=== PATIENT | female | born 1975 | race Caucasian/White ===

== ENCOUNTER → 2016-05-25 | Outpatient (CLI) | payer BC | LOC: MOB LAB 08:20 | PROVIDERS: ATTEND Physician Assistant Medical | DX: R30.0 Dysuria (principal); N30.01 Acute cystitis with hematuria | CPT/HCPCS: 87088 ==

== ENCOUNTER 2016-05-29 11:28 | Emergency (ER) | payer BC ==
[2016-05-29] MEDS ORDERED: NORMAL SALINE 10 ML SYRINGE FLUSH IVP PRN (11:35)
[2016-05-29] MEDS ORDERED: ONDANSETRON 4 MG/2 ML VIAL IVP ONE (11:35)
[2016-05-29] MEDS ORDERED: KETOROLAC 15 MG/1 ML VIAL IVP ONE ×2 (11:35→13:00)
[2016-05-29] MEDS: Sodium Chloride 0.9% 1,000 ML PRIMARY IV ONE ×3 (11:40→13:00)
[2016-05-29 11:50] LABS: BASOPHILS # (AUTO) 0.02 10*3/UL; BASOPHILS % (AUTO) 0.2 % (0-1); EOSINOPHILS # (AUTO) 0.02 10*3/UL; EOSINOPHILS % (AUTO) 0.2 % (0-8); HEMATOCRIT 42.2 % (37.0-47.0); HEMOGLOBIN 14.6 g/dL (12.0-16.0); LYMPHOCYTES # (AUTO) 1.17 10*3/uL; MEAN CORPUSCULAR HEMOGLOBIN 28.6 PG (27-31); MEAN CORPUSCULAR HGB CONC 34.6 g/dL (33-37); MEAN CORPUSCULAR VOLUME 82.7 FL (81-99); MEAN PLATELET VOLUME 9.9 FL (7.4-12.2); MONOCYTES # (AUTO) 0.75 10*3/UL (0.3-0.8); NEUTROPHILS # (AUTO) 8.79 10*3/UL; NEUTROPHILS % (AUTO) 81.5 % (50-80)
[2016-05-29 11:53] LABS: PLATELET MORPHOLOGY COMMENT NORMAL MORPHOLOGY (NORM); RBC MORPHOLOGY COMMENT NORMAL MORPHOLOGY (NORM); WBC MORPHOLOGY COMMENT NORMAL MORPHOLOGY (NORM)
[2016-05-29] MEDS: fentaNYL Inj 100 MCG/2 ML VIAL IVP ONE ×2 (11:55→12:02)
[2016-05-29] MEDS ORDERED: fentaNYL Inj 100 MCG/2 ML VIAL IVP ONE (12:03)
--- NOTE | 2016-05-29 12:08 | PDOC ---
Abdomen/Flank HPI - General Chief Complaint: Genitourinary Complaint Stated Complaint: RIGHT FLANK PAIN RADIATING TO RIGHT GROIN Date Seen by Provider: 05/29/16 Time Seen by Provider: 11:50 Source: POSITIVE: Patient Exam Limitations: POSITIVE: No limitations Nurse's Notes Reviewed & Considered: Yes - History of Present Illness Initial Comments: The patient is a 41-year-old female who presents to the emergency department with right flank and right lower groin pain. She states that she had developed urinary tract infection symptoms approximately a week ago. She was initially evaluated at the walk-in clinic on 05/25/2016. At that time urine dip showed a large amount of blood, positive nitrites and trace leukocyte esterase. A culture was obtained and she was started on Macrobid and pyridium. Her urine culture was negative from the urinalysis done on 05/25. She reports that she went on a trip with her daughter to [place] last and Sunday and during this trip she started to develop significant increase in right flank pain as well as pain in the right groin region. She states that she really did not get out of bed over the weekend. Her physician changed her antibiotic from Macrobid to Cipro which she has now been taking for 2 days. This morning she has onset of severe right flank pain radiating to the right groin. She states that she feels like her bladder spasming. She has urinary urgency and frequency. She also has associated chills. She has nausea however has not had any vomiting yet this morning. She reports that she does have a history of urethral stricture and has had urinary tract infections fairly frequently in the past. - Patient Home Medications Home Medications: Home Medications Metoprolol Succinate 25 mg PO BID 03/14/12 Venlafaxine HCl [Effexor Xr] 75 mg PO BID 03/14/12 Valacyclovir HCl [Valtrex] 2 tab PO Q12H #4 tab 01/13/15 Amitriptyline HCl 1 tab PO QD tab 05/25/16 Gabapentin 1 cap PO QD cap 05/25/16 Hyoscyamine Sulfate 0.25 mg PO Q4H #20 tab 05/25/16 Nitrofurantoin Monohyd/M-Cryst [Macrobid 100 Mg Capsule] 100 mg PO BID #7 tab Phenazopyridine HCl [Pyridium] 200 mg PO TID #9 tab 05/25/16 Ciprofloxacin HCl [Cipro] 250 mg PO Q12H #14 tab 05/27/16 - Patient Allergies Allergies/Adverse Reactions: Allergies Allergy/AdvReac Type Severity Reaction Status Date / Time Sulfa (Sulfonamide Allergy hives Verified 05/29/16 11:36 Antibiotics) metoclopramide HCl AdvReac overly Verified 05/29/16 11:36 [From Reglan] sedating Past Medical History - heen HEENT History: Denies History Cardiovascular History: Other (please comment) Additional Cardiovasular History: Hx of cardiac re-entry. Respiratory History: Denies History Gastrointestinal History: Denies History Genitourinary History: Denies History Endocrine History: Denies History Musculoskeletal History: Other (please comment) Additional Musculoskeletal History: Hx of bilateral knee repair, right elbow repair, partial rib resection. Neurological History: Denies History Blood Disorders: Denies History Psychiatric History: Denies History Cancer History: Denies History History of MDRO: No Alcohol Use: None Substance Use Type: None Previous Surgical History: Yes Significant Family History: No pertinent family hx Past Medical History Reviewed: Reviewed - No Changes ROS - Limitations ROS Limitations: No Limitations Constitution: REPORTS: Chills. DENIES: Fever Cardiovascular: REPORTS: Denies Cardiac Symptoms Respiratory: REPORTS: Denies Resp Symptoms Neurological: REPORTS: Denies Neuro Symptoms Gastrointestinal: REPORTS: Abdominal Pain (Right lower quadrant/right groin pain ), Nausea. DENIES: Vomitting Musculoskeletal: REPORTS: Denies MS Symptoms Genitourinary: REPORTS: Dysuria, Flank Pain (Right-sided flank pain), Difficulty Urinating, Other (Urgency and frequency) Eyes: REPORTS: Denies Symptoms ENT: REPORTS: Denies Symptoms Skin: DENIES: Rash (Her cheeks are red and flushed as well as her upper neck which she does get from time to time) Abdominal/Flank Pain PE - General Appearance General Appearance: POSITIVE: Alert, Cooperative, No Acute Distress, Other (She does appear to be uncomfortable on arrival) - HEENT HEENT: POSITIVE: Head Inspection Nml, Eyes Inspection Nml, Ears Inspection Nml, Pharynx Inspect. Nml, Dry Mucous Membranes - Neck Neck: POSITIVE: Normal Inspection, Lymphadenopathy - Respiratory Respiratory: POSITIVE: No Respiratory Distress, Breath Sounds Normal - Cardiovascular Cardiovascular: POSITIVE: Regular Rate and Rhythm, Heart Sounds Normal - Abdomen Abdomen: Soft: (All Quadrants), Normal Bowel Sounds: (All Quadrants), No Guarding: (All Quadrants), No Rebound: (All Quadrants) Additional Abdominal Details: Minimal tenderness to palpation over the suprapubic and right lower quadrants, bedside ultrasound to evaluate her bladder reveals a nondistended bladder with an estimated 50-75 mL of urine - Skin Skin: POSITIVE: Intact, No Rash - Extremities Extremity: Normal ROM: (All Extremities), Normal Inspection: (All Extremities) - Neurological Neurological: POSITIVE: Oriented X3, Other (No focal neurologic deficits) Abdomen Progress - Results Reviewed by me Xrays/CTs/US Reviewed by me: Yes Discussed with Radiologist: Yes Radiology Findings: CT scan of the abdomen and pelvis stone protocol reveals a 4 mm stone in the distal UVJ with associated moderate hydronephrosis on the right side. No other acute abnormalities. Lab Results Reviewed: Yes Lab Results:: Laboratory Results 05/29/16 05/29/16 Range/Units 11:46 13:00 WBC 10.77 (4.8-10.8) 10^3/uL RBC 5.10 (4.20-5.40) 10^6/uL Hgb 14.6 (12.0-16.0) g/dL Hct 42.2 (37.0-47.0) % MCV 82.7 (81-99) FL MCH 28.6 (27-31) PG MCHC 34.6 (33-37) g/dL RDW Std Deviation 37.7 L (39-50) fL RDW Coeff of [place] 12.6 (11.5-14.5) % Plt Count 281 (140-350) 10*3/uL MPV 9.9 (7.4-12.2) FL Immature Gran % (Auto) 0.2 (0-5) % Neut % (Auto) 81.5 H (50-80) % Lymph % (Auto) 10.9 (10-50) % [place] % (Auto) 7.0 (5-15) % Eos % (Auto) 0.2 (0-8) % Baso % (Auto) 0.2 (0-1) % Immature Gran # (Auto) 0.02 10*3/UL Neut # (Auto) 8.79 10*3/UL Lymph # (Auto) 1.17 10*3/uL [place] # (Auto) 0.75 (0.3-0.8) 10*3/UL Eos # (Auto) 0.02 10*3/UL Baso # (Auto) 0.02 10*3/UL WBC Morphology Comment Normal morphology (NORM) Plt Morphology Comment Normal morphology (NORM) RBC Morph Comment Normal morphology (NORM) Sodium 138 (135-145) meq/L Potassium 3.8 (3.8-5.2) meq/L Chloride 103 (98-112) meq/L Carbon Dioxide 21 L (23-33) meq/L Anion Gap 14 (5-20) BUN 13 (7-22) mg/dL Creatinine 0.9 (0.50-1.20) mg/dL Estimated GFR > 60 (>60 ml/min/1.73m(2)) BUN/Creatinine Ratio 14.44 (6-20) Glucose 106 (78-110) mg/dL Calculated Osmolality 285.0 (267-292) mOsm/kg Lactic Acid 1.5 (0.70-2.10) MMOL/L Calcium 9.9 (8.7-10.7) mg/dL Total Bilirubin 0.6 (0.3-1.2) mg/dL AST 25 (8-39) IU/L ALT 37 (9-52) IU/L Alkaline Phosphatase 69 (38-126) IU/L C-Reactive Protein < 0.5 (0.0-0.9) mg/dL Total Protein 8.4 H (6.1-8.0) g/dL Albumin 5.0 H (3.5-4.8) g/dL Globulin 3.4 (2.50-4.10) g/dL Albumin/Globulin Ratio 1.40 (1.3-2.0) mg/g Amylase 51 (30-110) U/L Lipase 180 (23-300) IU/L Ur Collection Type Clean catch urine Urine Color Yellow Urine Clarity Clear (CLEAR) Urine pH 6.5 (5.0-8.5) Ur Specific [place] 1.010 (1.005-1.030) Urine Protein Negative (NEG) mg/dl Urine Glucose (UA) Negative (NEG) mg/dL Urine Ketones Trace (NEG) Urine Occult Blood Small H (NEG) Urine Nitrate Negative (NEG) Urine Bilirubin Negative (NEG) Urine Urobilinogen 0.2 (0.2) EU/dL Ur Leukocyte Esterase Negative (NEG) Urine RBC 3-5 (NONE) /hpf Urine WBC 0 (NONE) Ur Squamous Epith Cells None (NONE) Ur Renal Epithelial Cell None (NONE) Urine Crystals None Urine Bacteria Rare (NONE) Urine Casts None (NONE) Urine Mucus None (NONE) Urine Trichomonas None (NONE) Urine Yeast None (NONE) Ur Culture Indicated? Culture not set - Patient's Progress MDM / ED Course: The patient was having significant pain on arrival. An IV was established and she received Toradol 15 mg IV, fentanyl 50 g IV and Zofran 4 mg IV. Her fentanyl dose was repeated as she was not getting much pain relief. She still did not have really any pain relief and received Dilaudid 1 mg IV. This took the edge off of her pain however upon returning from CT her pain had intensified back to its original level when she came in. She received a second dose of Dilaudid 1 mg IV as well as a second dose of Toradol 15 mg IV. She continued to have pain primarily in the right groin. Her lab work is all essentially unremarkable and her urinalysis is unremarkable except for a small amount of blood. Her CT does reveal a 4 mm stone in the distal UVJ on the right side with associated moderate hydronephrosis. Because of her degree of continued pain and because her symptoms have been ongoing for at least the past 4 days I did contact Dr. Huff who is on-call for urology at [facility]. He agreed to see the patient in consultation and likely remove the stone today. He recommended that she go through the ER at [facility]. I subsequently contacted Dr. Smith in the emergency department and she agreed to accept the patient in transfer. These findings and recommendations were discussed with the patient and she is in agreement with this plan. Patient Care Time - Estimated PCT Patient Care Time (In Minutes): 45 Vital Signs - Recent Vital Signs Vital Signs: Vital Signs (Last 8 hours) Temp Pulse Resp BP Pulse Ox 05/29/16 11:29 98 F 106 H 22 169/110 98 - VS Reviewed Vital Signs Reviewed: Yes Discharge Clinical Impression: Calculus of ureter, Hydronephrosis of right kidney Discharge Disposition: Transferred to Tertiary Care Facility Condition: Stable Date Decision to Transfer to Another Facility: 05/29/16 Time Decision to Transfer to Another Facility: 13:40
[2016-05-29 12:09] LABS: BLOOD UREA NITROGEN 13 mg/dL (7-22); BUN/CREATININE RATIO 14.44 (6-20); CALCIUM 9.9 mg/dL (8.7-10.7); EST GLOMERULAR FILTRATION > 60 (>60 ml/min/1.73m(2)); LIPASE 180 IU/L (23-300)
[2016-05-29] MEDS ORDERED: HYDROmorphone 2 MG/1 ML IVP ONE ×2 (12:10→13:00)
--- NOTE | 2016-05-29 13:14 | DI ---
CT ABDOMEN/PELVIS W/O CONTRAST,05/29/2016 11:40 AM: Clinical History: Flank pain. Previous Exam: October 31, 2013 Findings: Multiple helically acquired CT images are obtained through the abdomen and pelvis without contrast, a nd demonstrate a 4 mm stone within the right distal ureter at the ureterovesicular junction. There is moderate to severe right hydronephrosis. The adrenals are unremarkable. There is a small 2 mm renal parenchymal stone on the right as well. The liver is unremarkable. Patient is status post cholecystectomy. There are a few phleboliths. Postsurgical changes are seen consistent with transpedicular fixation of L4/5. The is unremarkable. Impression: 4 mm stone within the right distal ureterovesicular junction causing moderate right hydronephrosis.
[2016-05-29 13:40] LABS: COLOR,URINE YELLOW; URINE SAMPLE TYPE CLEAN CATCH URINE
[2016-05-29 13:41] LABS: CLARITY,URINE CLEAR (CLEAR); GLUCOSE, URINE (UA) NEGATIVE (NEG); PH,URINE 6.5 (5.0-8.5); PROTEIN,URINE NEGATIVE (NEG)
[2016-05-29 13:42] LABS: BILIRUBIN,URINE NEGATIVE (NEG); NITRATE,URINE NEGATIVE (NEG); OCCULT BLOOD,URINE SMALL (NEG); UROBILINOGEN,URINE 0.2 EU/dL (0.2)
[2016-05-29 13:43] LABS: WBC,URINE 0
[2016-05-29 13:44] LABS: BACTERIA,URINE RARE
[2016-05-29 14:22] VITALS: RESP 14; TEMP 98.6
== END 2016-05-29 14:17 | disposition short-term general hospital (02) ==
LOC: ER 11:28
DX: N13.2 Hydronephrosis with renal and ureteral calculous obstruction (principal); R35.0 Frequency of micturition; R11.0 Nausea
CPT/HCPCS: 36415; 74176; 80053; 81001; 81003; 82150; 83605; 83690; 85025; 86140; 96374; 96375; 96376; 99283 ×2; J3010; J1170; J1885; J2405; J7030

== ENCOUNTER → 2016-07-21 | Outpatient (CLI) | payer BC ==
--- NOTE | 2016-07-23 15:24 | DI ---
CT ABDOMEN/PELVIS W/O CONTRAST,07/21/2016 1:07 PM: Clinical History: CT stone protocol. Previous Exam: May 29, 2016 Findings: Multiple helically acquired CT images are obtained through the abdomen and pelvis without contrast, a nd demonstrate a normal urinary bladder. There is moderate stool throughout the colon. Patient is status post cholecystectomy. The spleen, pancreas and adrenals are unremarkable. The urina ry bladder is also unremarkable. There is posterior transpedicular fusion of L4/5 with intervertebral disc spacer device. There is los s of intervertebral disc height at L5/S1 level. There is no hydronephrosis nor nephrolithiasis. The ureters demonstrate normal course and caliber wit h orthotopic insertion on the urinary bladder. Impression: No obstructive uropathy.
== END ==
LOC: CT 12:57
PROVIDERS: ATTEND Urology
DX: R39.15 Urgency of urination (principal)
CPT/HCPCS: 74176

== ENCOUNTER → 2016-08-29 | Outpatient (CLI) | payer BC ==
[2016-08-29 13:38] LABS: BILIRUBIN,URINE NEGATIVE (NEG); CLARITY,URINE CLEAR (CLEAR); COLOR,URINE YELLOW; GLUCOSE, URINE (UA) NEGATIVE (NEG); NITRATE,URINE NEGATIVE (NEG); OCCULT BLOOD,URINE MODERATE (NEG); PH,URINE 5.5 (5.0-8.5); PROTEIN,URINE TRACE mg/dl (NEG); SQUAMOUS EPITHELIAL CELL,UR RARE; URINE SAMPLE TYPE CLEAN CATCH URINE; UROBILINOGEN,URINE 0.2 EU/dL (0.2); WBC,URINE RARE
[2016-08-29 13:39] LABS: BACTERIA,URINE FEW; YEAST,URINE FEW
== END ==
LOC: LAB 13:10
PROVIDERS: ATTEND Physician Assistant Medical
DX: R30.0 Dysuria (principal)
CPT/HCPCS: 81001

== ENCOUNTER → 2016-09-21 | Outpatient (CLI) | payer BC ==
--- NOTE | 2016-09-21 14:45 | EKG ---
[address] [address] Measurements Intervals [place] Rate: 77 P: 68 MT: 144 QRS: 79 QRSD: 80 T: 62 QT: 385 QTc: 417 Interpretive Statements SINUS RHYTHM No previous ECG available for comparison Electronically Signed On 09-22-16 07:50:13 MDT by Mike Ng MD [email or web address]
[2016-09-21 15:23] LABS: BILIRUBIN,URINE NEGATIVE (NEG); CLARITY,URINE CLEAR (CLEAR); COLOR,URINE YELLOW; GLUCOSE, URINE (UA) NEGATIVE (NEG); NITRATE,URINE NEGATIVE (NEG); OCCULT BLOOD,URINE MODERATE (NEG); PROTEIN,URINE NEGATIVE (NEG); UROBILINOGEN,URINE 0.2 mg/dL (0.2)
[2016-09-21 15:28] LABS: BLOOD UREA NITROGEN 20 mg/dL (7-22); CALCIUM 9.3 mg/dL (8.7-10.7); EST GLOMERULAR FILTRATION > 60 (>60 ml/min/1.73m(2)); SERUM ALBUMIN 4.5 g/dL (3.5-4.8)
[2016-09-21 15:30] LABS: HEMOGLOBIN 14.2 g/dL (12.0-16.0); MEAN CORPUSCULAR HEMOGLOBIN 28.2 PG (27-31); MEAN CORPUSCULAR HGB CONC 33.8 g/dL (33-37); MEAN CORPUSCULAR VOLUME 83.5 FL (81-99); RED BLOOD COUNT 5.03 10^6/uL (4.20-5.40)
[2016-09-21 15:31] LABS: BASOPHILS % (AUTO) 0.6 % (0-1); EOSINOPHILS % (AUTO) 0.7 % (0-8); MEAN PLATELET VOLUME 10.1 FL (7.4-12.2); MONOCYTES # (AUTO) 0.88 10*3/UL (0.3-0.8); MONOCYTES % (AUTO) 7.6 % (5-15); NEUTROPHILS # (AUTO) 8.56 10*3/UL; NEUTROPHILS % (AUTO) 73.6 % (50-80)
[2016-09-21 15:32] LABS: BASOPHILS # (AUTO) 0.07 10*3/UL; EOSINOPHILS # (AUTO) 0.08 10*3/UL; PLATELET MORPHOLOGY COMMENT NORMAL MORPHOLOGY (NORM); RBC MORPHOLOGY COMMENT NORMAL MORPHOLOGY (NORM); WBC MORPHOLOGY COMMENT NORMAL MORPHOLOGY (NORM)
[2016-09-21 20:21] LABS: SQUAMOUS EPITHELIAL CELL,UR RARE; URINE SAMPLE TYPE VOIDED SPECIMEN
== END ==
LOC: MOB EKG 14:24
PROVIDERS: ATTEND Physician Assistant Medical
DX: R00.2 Palpitations (principal); R07.9 Chest pain, unspecified; R42 Dizziness and giddiness; R06.02 Shortness of breath; Z87.442 Personal history of urinary calculi
CPT/HCPCS: 36415; 80053; 81001; 84443; 85025; 93005; 93010

== ENCOUNTER 2016-10-08 19:40 | Emergency (ER) | payer BC ==
[2016-10-08] MEDS ORDERED: Sodium Chloride 0.9% 1,000 ML PRIMARY IV ONE (20:03)
[2016-10-08] MEDS ORDERED: ONDANSETRON 4 MG/2 ML VIAL IVP ONE (20:03)
[2016-10-08] MEDS ORDERED: MORPHINE SULFATE 4 MG/1 ML IVP ONE ×2 (20:03→20:33)
--- NOTE | 2016-10-08 20:07 | PDOC ---
Foot / Ankle Injury - General Chief Complaint: Lower Extremity Problem/Injury Stated Complaint: stepped in hole twisted lt. ankle pain Date Seen by Provider: 10/08/16 Time Seen by Provider: 20:03 Source: POSITIVE: Patient Exam Limitations: POSITIVE: No limitations Nurse's Notes Reviewed & Considered: Yes - History of Present Illness Initial Comments: Patient comes in today chief complaint of left ankle pain. Patient was stepping onto a small step rolled her foot off the edge and landed on the lower step felt a crunch, heard a pop, and had significant pain and deformity in her left ankle. She denies any other injury pattern. She does have some nausea. Denies any headache, no chest pain or shortness of breath, no cough, no fever chills or sweats, she does have nausea but no vomiting or diarrhea, no hematuria or dysuria, no rashes Have you received a tetanus shot in the past 10 years?: Yes Location: Left Ankle Timing: REPORTS: Abrupt Duration: 1/2 hour Severity: Severe Quality: REPORTS: "Pain", Sharpness, Stabbing, Throbbing, Tenderness Location at Time of Onset: REPORTS: Home Context: REPORTS: Fall, Twist Modifying Factors: REPORTS: Movement, Nothing Relieves Any Prior Injuries Related to Current Complaint?: No - Patient Allergies Allergies/Adverse Reactions: Allergies Allergy/AdvReac Type Severity Reaction Status Date / Time Sulfa (Sulfonamide Allergy hives Verified 10/08/16 21:37 Antibiotics) metoclopramide HCl AdvReac overly Verified 10/08/16 21:37 [From Reglan] sedating - Patient Home Medications Home Medications: Home Medications Metoprolol Succinate 25 mg PO BID 03/14/12 Venlafaxine HCl [Effexor Xr] 75 mg PO BID 03/14/12 Valacyclovir HCl [Valtrex] 2 tab PO Q12H #4 tab 01/13/15 Gabapentin 1 cap PO QD cap 05/25/16 Amitriptyline HCl 1 tab PO tab 09/09/16 Past Medical History - heen HEENT History: Denies History Cardiovascular History: Other (please comment) Additional Cardiovasular History: Hx of cardiac re-entry. Respiratory History: Denies History Gastrointestinal History: Denies History Genitourinary History: Denies History Endocrine History: Denies History Musculoskeletal History: Other (please comment) Prosthesis or Implant: No Additional Musculoskeletal History: Hx of bilateral knee repair, right elbow repair, partial rib resection. Neurological History: Denies History Blood Disorders: Denies History Psychiatric History: Denies History Cancer History: Denies History History of MDRO: No Alcohol Use: None Substance Use Type: None Previous Surgical History: Yes Type / Date of Surgery: HYST, KNEE SCOPE, LUMBAR FUSION, TONSILS, GB Anesthesia Reactions: No Significant Family History: No pertinent family hx ROS - Limitations ROS Limitations: No Limitations Constitution: REPORTS: Denies Symptoms Cardiovascular: REPORTS: Denies Cardiac Symptoms Respiratory: REPORTS: Denies Resp Symptoms Neurological: REPORTS: Denies Neuro Symptoms Gastrointestinal: REPORTS: Nausea Endocrine: REPORTS: Denies Symptoms Musculoskeletal: REPORTS: Joint Pain (Left ankle) Genitourinary: REPORTS: Denies Symptoms Eyes: REPORTS: Denies Symptoms ENT: REPORTS: Denies Symptoms Skin: REPORTS: Denies Skin Symptoms Lympathic: REPORTS: Denies Lympathic Symptoms Immunologic: POSITIVE: Denies Symptoms Psychiatric: POSITIVE: Denies Psych Symptoms Foot / Ankle Exam - General Appearance General Appearance: POSITIVE: Alert, Cooperative, Moderate Distress - Extremities Foot: POSITIVE: Soft Tissue Tenderness, Swelling, Ecchymosis, Limited ROM d/t Pain, Deformity Ankle: POSITIVE: Soft-Tissue Tenderness (left ankle), Bony Tenderness, Swelling , Ecchymosis, Limited ROM, Deformity Gait: POSITIVE: Unable to Bear Weight Neuro: POSITIVE: Sensation Normal, Motor Normal Vascular: POSITIVE: No Vascular Compromise, Full Pulses, Equal Pulses Tendons: POSITIVE: Tendon Function Normal Skin: POSITIVE: Warm, Dry - HEENT HEENT: POSITIVE: Head Inspection Nml, Eyes Inspection Nml, Ears Inspection Nml, Nose Inspection Nml, Oral/Dental Inspect. Nml, Pharynx Inspect. Nml, PERRL, EOMI - Neck / Back Neck / Back: Normal Inspection - Respiratory / CVS Respiratory / CVS: POSITIVE: Chest Non-Tender, No Respiratory Distress, Heart Sounds Normal, Regular Rate/Rhythm, Breath Sounds Normal Peripheral Pulses: Dorsalis-pedis (L): 3+ - Abdomen Abdomen: Soft: (All Quadrants), Normal Bowel Sounds: (All Quadrants), Denies Tenderness: (All Quadrants), No Splenomegaly: (All Quadrants), No Hepatomegaly: (All Quadrants), No Guarding: (All Quadrants), No Rebound: (All Quadrants), No Palpable Pulse: (All Quadrants), No Palpabale Mass: (All Quadrants), No Distention: (All Quadrants), No Rigidity: (All Quadrants) Procedures - Laceration/Wound Repair Did patient have a laceration repair: No Foot / Ankle Progress - Results Reviewed by me Pain Medication Addressed: POSITIVE: Yes School/Work Release Addressed: POSITIVE: Yes Xrays/CTs/US Reviewed by me: Yes Discussed with Radiologist: Yes Radiology Results: POSITIVE: Left, Ankle, No Fracture, Normal Alignment Lab Results Reviewed: Yes Lab Results:: Laboratory Results 10/08/16 Range/Units 20:15 WBC 10.31 (4.8-10.8) 10^3/uL RBC 4.82 (4.20-5.40) 10^6/uL Hgb 13.9 (12.0-16.0) g/dL Hct 39.9 (37.0-47.0) % MCV 82.8 (81-99) FL MCH 28.8 (27-31) PG MCHC 34.8 (33-37) g/dL RDW Std Deviation 38.6 L (39-50) fL RDW Coeff of [place] 12.9 (11.5-14.5) % Plt Count 279 (140-350) 10*3/uL MPV 10.1 (7.4-12.2) FL Immature Gran % (Auto) 0.2 (0-5) % Neut % (Auto) 70.0 (50-80) % Lymph % (Auto) 21.7 (10-50) % [place] % (Auto) 6.6 (5-15) % Eos % (Auto) 0.8 (0-8) % Baso % (Auto) 0.7 (0-1) % Immature Gran # (Auto) 0.02 10*3/UL Neut # (Auto) 7.22 10*3/UL Lymph # (Auto) 2.24 10*3/uL [place] # (Auto) 0.68 (0.3-0.8) 10*3/UL Eos # (Auto) 0.08 10*3/UL Baso # (Auto) 0.07 10*3/UL WBC Morphology Comment Normal morphology (NORM) Plt Morphology Comment Normal morphology (NORM) RBC Morph Comment Normal morphology (NORM) PT 10.5 (9.7-11.4) secs INR 0.99 (0.00-5.90) N/A Sodium 137 (135-145) meq/L Potassium 3.5 L (3.8-5.2) meq/L Chloride 103 (98-112) meq/L Carbon Dioxide 21 L (23-33) meq/L Anion Gap 13 (5-20) BUN 23 H (7-22) mg/dL Creatinine 0.8 (0.50-1.20) mg/dL Estimated GFR > 60 (>60 ml/min/1.73m(2)) BUN/Creatinine Ratio 28.75 H (6-20) Glucose 91 (78-110) mg/dL Calculated Osmolality 287.0 (267-292) mOsm/kg Calcium 9.4 (8.7-10.7) mg/dL Total Bilirubin 0.5 (0.3-1.2) mg/dL AST 30 (8-39) IU/L ALT 32 (9-52) IU/L Alkaline Phosphatase 58 (38-126) IU/L Total Protein 8.0 (6.1-8.0) g/dL Albumin 4.7 (3.5-4.8) g/dL Globulin 3.4 (2.50-4.10) g/dL Albumin/Globulin Ratio 1.30 (1.3-2.0) mg/g - Patient's Progress Status: POSITIVE: Improved MDM / ED Course: Evaluated, an IV started, blood drawn and sent to the lab for studies, radiographic examinations were obtained. Patient received IV morphine, Zofran, Compazine, and Ativan. Findings: X-ray shows no acute osseous abnormalities. Laboratory findings are unremarkable. Assessment: Ankle sprain. Plan: Discharge home ice, elevation, rest, Tyler prescribed #10, walking boot and crutches. Follow-up with orthopedics if no improvement in 7-10 days. Lower Extremity Clinical Tools: POSITIVE: [place] Ankle Rule - Consult Counseled: POSITIVE: Patient, Family, RE: Lab Results, RE: Radiology Results, RE : DX, RE: Need for F/U Patient Care Time - Estimated PCT Patient Care Time (In Minutes): 30 Vital Signs - Recent Vital Signs Vital Signs: Vital Signs (Last 8 hours) Temp Pulse Resp BP Pulse Ox 10/08/16 21:54 82 16 132/87 96 10/08/16 21:05 84 16 133/73 92 10/08/16 21:02 98.3 F 100 20 142/88 100 10/08/16 20:54 94 18 137/80 92 10/08/16 20:47 89 20 139/82 94 10/08/16 20:31 79 20 140/91 98 10/08/16 20:20 84 22 128/78 98 - VS Reviewed Vital Signs Reviewed: Yes Discharge Clinical Impression: Sprain of ankle Discharge Disposition: Discharged to Home Condition: Good Patient Instructions Given at Discharge: Ankle Sprain (ED)
[2016-10-08 20:23] LABS: BASOPHILS # (AUTO) 0.07 10*3/UL; BASOPHILS % (AUTO) 0.7 % (0-1); EOSINOPHILS # (AUTO) 0.08 10*3/UL; EOSINOPHILS % (AUTO) 0.8 % (0-8); HEMATOCRIT 39.9 % (37.0-47.0); HEMOGLOBIN 13.9 g/dL (12.0-16.0); LYMPHOCYTES # (AUTO) 2.24 10*3/uL; MEAN CORPUSCULAR HEMOGLOBIN 28.8 PG (27-31); MEAN CORPUSCULAR HGB CONC 34.8 g/dL (33-37); MEAN CORPUSCULAR VOLUME 82.8 FL (81-99); MEAN PLATELET VOLUME 10.1 FL (7.4-12.2); MONOCYTES # (AUTO) 0.68 10*3/UL (0.3-0.8); MONOCYTES % (AUTO) 6.6 % (5-15); NEUTROPHILS # (AUTO) 7.22 10*3/UL; RED BLOOD COUNT 4.82 10^6/uL (4.20-5.40)
[2016-10-08 20:27] LABS: PLATELET MORPHOLOGY COMMENT NORMAL MORPHOLOGY (NORM); RBC MORPHOLOGY COMMENT NORMAL MORPHOLOGY (NORM); WBC MORPHOLOGY COMMENT NORMAL MORPHOLOGY (NORM)
[2016-10-08] MEDS ORDERED: Prochlorperazine Edisylate Inj 10mg/2ml vial IVP ONE (20:33)
[2016-10-08] MEDS ORDERED: LORazepam 2 MG/1 ML VIAL IVP ONE (20:33)
[2016-10-08 20:34] LABS: BLOOD UREA NITROGEN 23 mg/dL (7-22); BUN/CREATININE RATIO 28.75 (6-20); CALCIUM 9.4 mg/dL (8.7-10.7); EST GLOMERULAR FILTRATION > 60 (>60 ml/min/1.73m(2)); SERUM ALBUMIN 4.7 g/dL (3.5-4.8)
--- NOTE | 2016-10-08 21:07 | DI ---
CLINICAL HISTORY: Trip and fall with left ankle pain and deformity. PREVIOUS EXAM: None available. FINDINGS/TECHNIQUE: 3 views of the left ankle are obtained, and demonstrate anatomic alignment witho ut fractures. The surrounding soft tissues are unremarkable. There are some small fragments noted wit hin the lateral ankle joint most likely representing a prior injury. IMPRESSION: 1. No acute fractures.
[2016-10-08 21:13] VITALS: TEMP 98.3
[2016-10-08 21:27] VITALS: RESP 16
[2016-10-08] MEDS ORDERED: HYDROcodone-APAP 5 MG -325 MG TABLET PO SCH (22:15)
== END 2016-10-08 22:40 | disposition home or self-care (01) ==
LOC: ER 19:40
DX: S93.402A Sprain of unspecified ligament of left ankle, initial encounter (principal); R11.0 Nausea; W17.2XXA Fall into hole, initial encounter
CPT/HCPCS: 73610; 80053; 85025; 85610; 96361; 96374; 96375; 96376; 99283 ×2; J0780; J2060; J2270; J2405; J7030

== ENCOUNTER → 2016-10-10 | Outpatient (CLI) | payer BC ==
--- NOTE | 2016-10-11 09:02 | DI ---
XR TIB/FIB 2VW,10/10/2016 1:07 PM: Clinical History: Acute left ankle pain. Previous Exam: None at this facility. Findings: AP and lateral views of the left tibia and fibula are obtained, and demonstrate stable 4 mm ossicle j ust distal to the left fibula. The surrounding soft tissues are unremarkable. Impression: 1. Normal tibia and fibula. 2. Small 4 mm stable ossicle. This does not appear to represent an acute fracture.
--- NOTE | 2016-10-11 09:07 | DI ---
XR FOOT COMPLETE MIN 3VW,10/10/2016 1:07 PM: Clinical History: Left foot pain Previous Exam: Jul 08 2016 Findings: 3 views of the left foot are obtained, and are limited as the oblique view demonstrates nonvisualizat ion of the distal cuffs of the distal phalanges. Alignment is anatomic, and no fractures are seen. The surrounding soft tissues are unremarkable. Impression: No fractures.
== END ==
LOC: RAD 13:03
PROVIDERS: ATTEND Physician Assistant Medical
DX: M25.572 Pain in left ankle and joints of left foot (principal)
CPT/HCPCS: 73590; 73610; 73630